=== PATIENT | male | born 1965 | race Caucasian/White ===

== ENCOUNTER → 2018-08-08 | Outpatient (CLI) | payer SELFPAY ==
--- NOTE | 2018-08-08 16:46 | Diagnostic Imaging Report ---
PROCEDURE: CT chest without contrast. TECHNIQUE: Multiple contiguous axial images were obtained through the chest without the use of intravenous contrast. Auto Exposure Controls were utilized during the CT exam to meet ALARA standards for radiation dose reduction. INDICATION: Fever and cough for three weeks. Patient reportedly has abnormal chest x-ray. COMPARISON: No prior studies are available for comparison. FINDINGS: No axillary lymphadenopathy is seen. Hilar and mediastinal evaluation is limited without intravenous contrast. No pericardial or pleural fluid is seen. There is elevation of the left hemidiaphragm. Parenchymal evaluation does show some linear atelectasis or scarring in the lingula and left lower lobe. No pneumothorax is seen. There are some bullae or blebs in both lungs. Upper abdomen is unremarkable. IMPRESSION: Lingular and left lower lobe scarring or subsegmental atelectasis. There are some mild centrilobular emphysematous changes in both lungs. No acute infiltrate or mass is identified. Report given to nurse (Dax) & faxed [phone] at 4:43 p.m. 08/08/2018/cb Dictated by: Dictated on workstation # [id number]
== END ==
LOC: RAD FS 14:21
PROVIDERS: ATTEND Nurse Practitioner
DX: J43.2 Centrilobular emphysema (principal); R50.9 Fever, unspecified
CPT/HCPCS: 71250

== ENCOUNTER → 2018-11-20 | Outpatient (CLI) | payer SELFPAY ==
--- NOTE | 2018-11-20 12:26 | Diagnostic Imaging Report ---
PROCEDURE: CT chest without contrast. TECHNIQUE: Multiple contiguous axial images were obtained through the chest without the use of intravenous contrast. Auto Exposure Controls were utilized during the CT exam to meet ALARA standards for radiation dose reduction. INDICATION: Lung nodules. FINDINGS: Comparison is 08/08/2018. There is mild paraseptal and centrilobular emphysema. There is unchanged scarring or atelectasis in the lingula and left lower lobe. No suspicious pulmonary nodules that would require followup are seen. A 2 mm right middle lobe nodule is stable and has the morphology of an intrapulmonary lymph node. No edema or pneumonia. No pleural effusion or pneumothorax. Heart size is normal. No pericardial effusion. Aorta is normal in caliber. There is no axillary, supraclavicular or mediastinal lymphadenopathy. Limited views of the upper abdomen are unremarkable. There are no suspicious osseous lesions. IMPRESSION: 1. No suspicious pulmonary nodules that would require followup. Stable mild scarring or atelectasis in the left lower lobe and lingula as noted. Dictated by: Dictated on workstation # [id number]
== END ==
LOC: RAD FS 11:04
PROVIDERS: ATTEND Family Medicine
DX: R91.8 Other nonspecific abnormal finding of lung field (principal); R00.0 Tachycardia, unspecified
CPT/HCPCS: 71250